=== PATIENT | male | born 1960 | race Caucasian/White ===

== ENCOUNTER 2022-11-11 07:30 | Outpatient (RCR) | payer MEDICAID, SELFPAY ==
--- NOTE | 2022-09-08 12:43 | PT.OPE ---
PT [facility] PT [facility] Eval Start: 09/08/22 09:13 Freq: Status: Active Protocol: Document 09/08/22 12:39 CJT (Rec: 09/08/22 12:43 CJT [id number]) E-signed By Noe Mccabe PT Physical Therapy Outpatient Evaluation Insurance Information Recert Due Date 11/03/22 Insurance Name [employer],Medicaid Medical Diagnosis R20.2 - paresthesia of left upper extremity M54.2 - neck pain Treating Diagnosis M54.12 - cervical radiculopathy Referring Karlie Gallardo DO Subjective Subjective Pt presents with L-sided neck pain and L arm numbness beginning about 1 month ago. Pt states he woke one morning with the pain and numbness. Thinks he slept wrong that night. Pt prefers to sleep on his back. Pts pain goes away with side bending to the R and returns when he returns to a neutral position. Has been taking muscle relaxers and IBP with minimal and non-lasting relief. 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 Pt rates numbness as 7/ 10 currently. Was 9/10 a few weeks ago. Is also having some pain in posterior L cervical spine. Numbness is travelling all the way down his L arm and into his fingers, primarily fingers 1 and 2. Paresthesia is keeping him up and night and he is only able to sleep 2 -3 hours at a time. Working overhead makes his symptoms work. Pt is unsure if has loss of strength in L UE. 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 Palpation Pain with palpation to R suboccipitals, B pec minor and UT Other/Pertinent Objective Special testing Spurling's Compression: positive bilaterally for increased numbness in L UE Distraction: relief of symptoms with prolonged hold Assessment Assessment/Impression Pt is a 62 year old male who presents to OP PT clinic with complaints of L-sided neck pain and L arm numbness. Pt woke with the numbness about 1 month ago. The pain has decreased slightly since then but is far from resolved. Pain is 7/10 today, made worse with cervical extension, improved with side bend to R. Testing indicates poor cervical ROM but well preserved cervical strength. no loss of UE strength is noted bilaterally. Spurling's compression and cervical extension reproduces and intensifies pts symptoms. Gregg is presenting with classic cervical radiculopathy symptoms at this time. The nature of the pts condition was explained and all questions were answered to the pts satisfaction. Skilled PT services are medically necessary to address deficits and return patient to highest level of function. Recommend physical therapy sessions 1-2/ week for 8 weeks. Pt agrees with this plan. Printout of HEP was given for I completion and pt gives verbal understanding of each exercise . Primary Functional Limitations Sleeping, turning head, lifting overhead, looking up Plan of Care Rehabilitation Potential Excellent Physical Therapy Goals STG - To be completed in 2-3 weeks: 1. Pt will demonstrate ability to perform chin tuck + head lift with minimal shaking as indication of improved mm endurance in cervical spine. 2. Pt will report reduction in numbness factor of 2 so that they may roll over in bed without waking due to pain. LTG - To be completed in 6-8 weeks: 1. Pt to be I with HEP so that they may I manage progression of symptoms. 2. Pt will demo equal and pain free cervical rotation ROM and lateral flexion ROM so that they may look over shoulder while driving to watch for traffic. 3. Pt will report absence of L arm numbness at rest so that he may relax without discomfort outside of work. 4. Pt will report ability to perform all job duties with max 2/10 numbness in L arm so that he may work throughout the day without interruptions due to pain. 5. Pt will report ability to sleep throughout the night without waking due to pain so that they may wake well rested with reduced mental fatigue during working hours. Treatment Plan/Direct Interventions Heat,Joint Mobilization,Manual Therapy,Self-Care/Home Management,Therapeutic Exercises,Traction (Mechanical ) Frequency/Duration 1-2/week for 8 weeks Patient Will Be Discharged From Therapy Completion of LTG(s),Skills Plateau,Independent w/HEP, Independently Progressing Evaluation Billing Untimed Code Treatment Minutes 30 PT Eval No Charge No Complexity Low Certification Information Initial Certification Date 09/08/22 Ending Certification Date 11/03/22 Provider Signature Shows Agreement With POC & Medical Necessity Physician Signature & Date Requested Please Sign/Date Here Physician Comment/Change : Physician NPI Number #
== END 2022-11-11 08:14 | disposition home or self-care (01) ==
PROVIDERS: PCP Family Medicine; Visit Provider Family Medicine
DX: M75.101 Unspecified rotator cuff tear or rupture of right shoulder, not specified as traumatic (principal); Z51.89 Encounter for other specified aftercare
CPT/HCPCS: 97012; 97110; 97140; 97161; 97535